=== PATIENT | male | born 1990 | race Caucasian/White ===

== ENCOUNTER 2021-04-08 00:54 | Emergency (ER) | payer OTHER ==
[2021-04-08 01:02] VITALS: TEMP 98.1
[2021-04-08 02:20] LABS: Basophils # (A) 0.1 k/uL (0-0.2); Basophils % (A) 1 %; Eosinophils % (A) 1 %; HCT 43.2 % (39.0-53.0); HGB 15.2 gm/dL (13.0-17.5); Lymphocytes # (A) 1.8 k/uL (1.0-4.8); Lymphocytes % (A) 27 %; MCH 31.5 pg (25.0-35.0); MCHC 35.1 g/dL (31.0-37.0); MCV 89.7 fL (80.0-100.0); Mean Platelet Volume 7.1; Monocytes # (A) 0.5 k/uL (0-1.0); Monocytes % (A) 8 %; Neutrophils % (A) 62 %; Platelet Count 202 k/uL (150-450); RBC 4.82 m/uL (4.30-5.90); RDW 11.4 % (11.5-15.5); WBC 6.6 k/uL (3.8-10.6)
[2021-04-08 02:21] LABS: Appearance,Urine Clear (Clear); Bilirubin,Urine Negative (Negative); Blood,Urine Negative (Negative); Color,Urine Light Yellow; Glucose,Urine (UA) Negative (Negative); Ketones,Urine Negative (Negative); Leukocyte Esterase,Urine Negative (Negative); Nitrite,Urine Negative (Negative); PH, Urine 6.5 (5.0-8.0); Protein,Urine Negative (Negative); Specific Gravity,Urine 1.011 (1.001-1.035); Urobilinogen,Urine <2.0 mg/dL (<2.0)
[2021-04-08 02:31] LABS: ALT 24 U/L (4-49); AST 27 U/L (17-59); African American GFR (CKD) >90 (>60 ml/min/1.73 sqM); Albumin 3.8 g/dL (3.5-5.0); Alkaline Phosphatase 53 U/L (38-126); Anion Gap 7 mmol/L; Blood Urea Nitrogen 11 mg/dL (9-20); Calcium 8.8 mg/dL (8.4-10.2); Carbon Dioxide 26 mmol/L (22-30); Chloride 101 mmol/L (98-107); Glucose 95 mg/dL (74-99); Non-African American GFR(CKD) >90 (>60 ml/min/1.73 sqM); Sodium 134 mmol/L (137-145); Total Bilirubin 0.3 mg/dL (0.2-1.3); Total Protein 6.6 g/dL (6.3-8.2)
--- NOTE | 2021-04-08 03:00 | ED ---
General Adult HPI - General Chief complaint: Weakness Stated complaint: Body Aches/Burning Time Seen by Provider: 04/08/21 01:37 Source: patient Mode of arrival: ambulatory - Related Data Allergies Allergy/AdvReac Type Severity Reaction Status Date / Time ibuprofen AdvReac Rash/Hives Verified 04/08/21 01:02 [From DayQuil Sinus Pressure/Pain] Influenza Virus Vaccines AdvReac Unknown Verified 04/08/21 01:02 Childhood Iodinated Contrast Media AdvReac Rash/Hives Verified 04/08/21 01:02 pseudoephedrine AdvReac Rash/Hives Verified 04/08/21 01:02 [From DayQuil Sinus Pressure/Pain] Review of Systems ROS Statement: Those systems with pertinent positive or pertinent negative responses have been documented in the HPI. ROS Other: All systems not noted in ROS Statement are negative. Past Medical History Past Medical History: No Reported History History of Any Multi-Drug Resistant Organisms: None Reported Past Surgical History: No Surgical Hx Reported Past Psychological History: No Psychological Hx Reported Smoking Status: Never smoker Past Alcohol Use History: None Reported Past Drug Use History: None Reported Course Vital Signs 04/08/21 04/08/21 04/08/21 00:59 01:02 02:21 Temperature 98.1 F 98.1 F Pulse Rate 97 73 Respiratory 18 17 19 Rate Blood Pressure 113/78 114/92 O2 Sat by Pulse 98 95 Oximetry Medical Decision Making - Lab Data Result diagrams: 04/08/21 02:01 04/08/21 02:01 Lab Results 04/08/21 04/08/21 04/08/21 Range/Units 02:01 02:01 02:01 WBC 6.6 (3.8-10.6) k/uL RBC 4.82 (4.30-5.90) m/uL Hgb 15.2 (13.0-17.5) gm/dL Hct 43.2 (39.0-53.0) % MCV 89.7 (80.0-100.0) fL MCH 31.5 (25.0-35.0) pg MCHC 35.1 (31.0-37.0) g/dL RDW 11.4 L (11.5-15.5) % Plt Count 202 (150-450) k/uL MPV 7.1 Neutrophils % 62 % Lymphocytes % 27 % Monocytes % 8 % Eosinophils % 1 % Basophils % 1 % Neutrophils # 4.0 (1.3-7.7) k/uL Lymphocytes # 1.8 (1.0-4.8) k/uL Monocytes # 0.5 (0-1.0) k/uL Eosinophils # 0.0 (0-0.7) k/uL Basophils # 0.1 (0-0.2) k/uL Sodium 134 L (137-145) mmol/L Potassium 4.0 (3.5-5.1) mmol/L Chloride 101 (98-107) mmol/L Carbon Dioxide 26 (22-30) mmol/L Anion Gap 7 mmol/L BUN 11 (9-20) mg/dL Creatinine 0.80 (0.66-1.25) mg/dL Est GFR (CKD-EPI)AfAm >90 (>60 ml/min/1.73 sqM) Est GFR (CKD-EPI)NonAf >90 (>60 ml/min/1.73 sqM) Glucose 95 (74-99) mg/dL Calcium 8.8 (8.4-10.2) mg/dL Total Bilirubin 0.3 (0.2-1.3) mg/dL AST 27 (17-59) U/L ALT 24 (4-49) U/L Alkaline Phosphatase 53 (38-126) U/L Total Protein 6.6 (6.3-8.2) g/dL Albumin 3.8 (3.5-5.0) g/dL Urine Color Urine Appearance (Clear) Urine pH (5.0-8.0) Ur Specific [place] (1.001-1.035) Urine Protein (Negative) Urine Glucose (UA) (Negative) Urine Ketones (Negative) Urine Blood (Negative) Urine Nitrite (Negative) Urine Bilirubin (Negative) Urine Urobilinogen (<2.0) mg/dL Ur Leukocyte Esterase (Negative) Coronavirus (PCR) Detected A (Not Detectd) 04/08/21 Range/Units 02:01 WBC (3.8-10.6) k/uL RBC (4.30-5.90) m/uL Hgb (13.0-17.5) gm/dL Hct (39.0-53.0) % MCV (80.0-100.0) fL MCH (25.0-35.0) pg MCHC (31.0-37.0) g/dL RDW (11.5-15.5) % Plt Count (150-450) k/uL MPV Neutrophils % % Lymphocytes % % Monocytes % % Eosinophils % % Basophils % % Neutrophils # (1.3-7.7) k/uL Lymphocytes # (1.0-4.8) k/uL Monocytes # (0-1.0) k/uL Eosinophils # (0-0.7) k/uL Basophils # (0-0.2) k/uL Sodium (137-145) mmol/L Potassium (3.5-5.1) mmol/L Chloride (98-107) mmol/L Carbon Dioxide (22-30) mmol/L Anion Gap mmol/L BUN (9-20) mg/dL Creatinine (0.66-1.25) mg/dL Est GFR (CKD-EPI)AfAm (>60 ml/min/1.73 sqM) Est GFR (CKD-EPI)NonAf (>60 ml/min/1.73 sqM) Glucose (74-99) mg/dL Calcium (8.4-10.2) mg/dL Total Bilirubin (0.2-1.3) mg/dL AST (17-59) U/L ALT (4-49) U/L Alkaline Phosphatase (38-126) U/L Total Protein (6.3-8.2) g/dL Albumin (3.5-5.0) g/dL Urine Color Light Yellow Urine Appearance Clear (Clear) Urine pH 6.5 (5.0-8.0) Ur Specific [place] 1.011 (1.001-1.035) Urine Protein Negative (Negative) Urine Glucose (UA) Negative (Negative) Urine Ketones Negative (Negative) Urine Blood Negative (Negative) Urine Nitrite Negative (Negative) Urine Bilirubin Negative (Negative) Urine Urobilinogen <2.0 (<2.0) mg/dL Ur Leukocyte Esterase Negative (Negative) Coronavirus (PCR) (Not Detectd) Disposition Clinical Impression: COVID-19 Disposition: HOME SELF-CARE Condition: Good Instructions (If sedation given, give patient instructions): Coronavirus Disease 2019 (COVID-19) Is patient prescribed a controlled substance at d/c from ED?: No Referrals: Prosper Rodriguez MD [Primary Care Provider] - 1-2 days
[2021-04-08 03:42] VITALS: BP 119/71; PULSE 74; RESP 16
== END 2021-04-08 03:35 | disposition home or self-care (01) ==
LOC: EC 00:54
DX: U07.1 COVID-19 (principal)
CPT/HCPCS: 36415; 80053; 81003; 85025; 87635; 93005; 99285

== ENCOUNTER 2021-09-29 17:42 | Emergency (ER) | payer OTHER ==
[2021-09-29 17:53] VITALS: TEMP 99.2
[2021-09-29] MEDS ORDERED: KETOROLAC 15 MG/ML 1 ML VIAL IM STA (18:28)
[2021-09-29] MEDS ORDERED: methocarbamoL 750 MG TAB PO STA (18:28)
[2021-09-29] MEDS ORDERED: HYDROcodone/APAP 5-325MG 1 EACH TAB PO STA (18:28)
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
[2021-09-29 20:00] VITALS: BP 128/83; PULSE 72; RESP 16
== END 2021-09-29 20:09 | disposition home or self-care (01) ==
LOC: EC 17:42
DX: T14.8XXA Other injury of unspecified body region, initial encounter (principal); J45.909 Unspecified asthma, uncomplicated; Z88.6 Allergy status to analgesic agent; Z88.7 Allergy status to serum and vaccine; Z91.041 Radiographic dye allergy status; V99.XXXA Unspecified transport accident, initial encounter
CPT/HCPCS: 71111; 72170; 73060; 99283; 96372; J1885

== ENCOUNTER 2022-02-15 20:28 | Emergency (ER) | payer OTHER ==
[2022-02-15 21:25] VITALS: TEMP 97.8
[2022-02-16] MEDS ORDERED: SODIUM CHLORIDE 0.9% 1,000 ML IV STA (00:06)
[2022-02-16] MEDS ORDERED: KETOROLAC 15 MG/ML 1 ML VIAL IVP STA (00:21)
[2022-02-16 01:21] LABS: Basophils # (A) 0.1 k/uL (0-0.2); Basophils % (A) 1 %; Eosinophils # (A) 0.1 k/uL (0-0.7); Eosinophils % (A) 1 %; HCT 46.8 % (39.0-53.0); HGB 15.3 gm/dL (13.0-17.5); Lymphocytes # (A) 1.5 k/uL (1.0-4.8); Lymphocytes % (A) 9 %; MCH 29.7 pg (25.0-35.0); MCHC 32.6 g/dL (31.0-37.0); MCV 90.9 fL (80.0-100.0); Mean Platelet Volume 7.3; Monocytes # (A) 0.6 k/uL (0-1.0); Monocytes % (A) 4 %; Neutrophils # (A) 13.2 k/uL (1.3-7.7); Neutrophils % (A) 84 %; Platelet Count 311 k/uL (150-450); RBC 5.15 m/uL (4.30-5.90); RDW 12.2 % (11.5-15.5); WBC 15.7 k/uL (3.8-10.6)
[2022-02-16 01:40] LABS: ALT 22 U/L (4-49); AST 30 U/L (17-59); African American GFR (CKD) >90 (>60 ml/min/1.73 sqM); Albumin 5.3 g/dL (3.5-5.0); Alkaline Phosphatase 68 U/L (38-126); Anion Gap 12 mmol/L; Blood Urea Nitrogen 13 mg/dL (9-20); Calcium 9.6 mg/dL (8.4-10.2); Carbon Dioxide 25 mmol/L (22-30); Chloride 104 mmol/L (98-107); Glucose 112 mg/dL (74-99); Lipase 237 U/L (23-300); Non-African American GFR(CKD) >90 (>60 ml/min/1.73 sqM); Potassium 3.9 mmol/L (3.5-5.1); Sodium 141 mmol/L (137-145); Total Bilirubin 0.6 mg/dL (0.2-1.3); Total Protein 8.9 g/dL (6.3-8.2)
[2022-02-16 01:44] LABS: Appearance,Urine Clear (Clear); Bilirubin,Urine Negative (Negative); Blood,Urine Small (Negative); Color,Urine Colorless; Glucose,Urine (UA) Negative (Negative); Ketones,Urine Negative (Negative); Leukocyte Esterase,Urine Negative (Negative); Nitrite,Urine Negative (Negative); PH, Urine 6.5 (5.0-8.0); Protein,Urine Negative (Negative); RBC,Urine <1 /hpf (0-5); Specific Gravity,Urine 1.003 (1.001-1.035); Urobilinogen,Urine <2.0 mg/dL (<2.0); WBC,Urine <1 /hpf (0-5)
[2022-02-16 01:45] VITALS: BP 108/83; PULSE 62; RESP 18
--- NOTE | 2022-02-16 01:58 | XR ---
EXAM: XR Abdomen, 1 View CLINICAL HISTORY: abdominal pain TECHNIQUE: Frontal upright view of the abdomen/pelvis. COMPARISON: No relevant prior studies available. FINDINGS: Intraperitoneal space: No pneumoperitoneum. Gastrointestinal tract: Unremarkable. No dilation. Mild stool burden. Bones/joints: Unremarkable. IMPRESSION: Nonspecific, nonobstructive bowel gas pattern. No pneumoperitoneum.
--- NOTE | 2022-02-16 02:12 | CT ---
EXAM: CT Abdomen and Pelvis Without Intravenous Contrast CLINICAL HISTORY: ITS.REASON CT Reason: Right flank pain TECHNIQUE: Axial computed tomography images of the abdomen and pelvis without intravenous contrast. CTDI is 9 mGy and DLP is 507.4 mGy-cm. This CT exam was performed using one or more of the following dose reduction techniques: automated exposure control, adjustment of the mA and/or kV according to patient size, and/or use of iterative reconstruction technique. COMPARISON: No relevant prior studies available. FINDINGS: Lung bases: Unremarkable. No mass. No consolidation. ABDOMEN: Liver: Unremarkable. Gallbladder and bile ducts: Unremarkable. No calcified stones. No ductal dilation. Pancreas: Unremarkable. No ductal dilation. Spleen: Unremarkable. No splenomegaly. Adrenals: Unremarkable. No mass. Kidneys and ureters: 2 mm distal right ureteral stone noted at the UVJ with minimal proximal right hydroureteronephrosis. Additional nonobstructive subcentimeter nephrolithiasis noted in the midpole of the right kidney. The left kidney is unremarkable. Stomach and bowel: No evidence for bowel obstruction. Evaluation of the bowel mucosa is slightly limited without contrast; however, no definite focal asymmetry suggested. PELVIS: Appendix: A normal caliber appendix is noted in the right lower quadrant. Bladder: Bladder is mildly distended. The right UVJ stone is again noted. No stones noted in the bladder. Reproductive: Unremarkable as visualized. ABDOMEN and PELVIS: Intraperitoneal space: Unremarkable. No free air. No significant fluid collection. Bones/joints: No acute fracture. No dislocation. Soft tissues: Unremarkable. Vasculature: Unremarkable. No abdominal aortic aneurysm. Lymph nodes: Unremarkable. No enlarged lymph nodes. IMPRESSION: 1. 2 mm distal right ureteral stone noted at the UVJ with minimal proximal right hydroureteronephrosis. 2. Additional nonobstructive subcentimeter nephrolithiasis noted in the midpole of the right kidney. The left kidney is unremarkable.
[2022-02-16] MEDS ORDERED: TAMSULOSIN 0.4 MG CAP.ER.24H PO STA (03:01)
--- NOTE | 2022-02-16 03:02 | ED ---
Abdominal Pain HPI - General Chief Complaint: Abdominal Pain Stated Complaint: Rt Sided Abd.Pain Time Seen by Provider: 02/16/22 00:06 Source: patient, RN notes reviewed Mode of arrival: ambulatory Limitations: no limitations - History of Present Illness Initial Comments: Patient presents with right flank pain that started quite abruptly about 5:30 or 6 PM. Patient had some nausea. No fever. No hematuria but had some urinary urgency. Did radiate around the right flank. Patient has no history of kidney stones. No alleviating or exacerbating factors. Patient states pain is somewhat improved but is still present however No headache, no fever or chills, no changes in vision or hearing, no sore throat or difficulty with speech, no neck pain, no chest pain or shortness of breath, no abdominal pain, no nausea or vomiting, no changes in urination or bowel movements, no numbness or tingling, no extremity pain, no skin rashes or lesions. MD Complaint: flank pain - Related Data Home Medications Medication Instructions Recorded Confirmed Albuterol Inhaler [Ventolin Hfa 2 puff INHALATION RT-QID PRN 09/06/21 12/05/21 Inhaler] EPINEPHrine (Auto Inject) [Epipen] 0.3 mg IM ONCE PRN 09/06/21 12/05/21 Venlafaxine HCl ER [Effexor Xr] 150 mg PO DAILY 09/06/21 12/05/21 hydrOXYzine HCL [Atarax] 20 mg PO TID PRN 09/06/21 12/05/21 Omeprazole 20 mg PO DAILY 09/29/21 12/05/21 Previous Rx's Medication Instructions Recorded Ondansetron Odt [Zofran Odt] 4 mg PO Q8HR PRN #10 tab 12/05/21 HYDROcodone/APAP 5-325MG [[place] 1 tab PO Q6HR PRN 3 Days #12 tab 02/16/22 5-325] Tamsulosin [Flomax] 0.4 mg PO DAILY #5 cap 02/16/22 Allergies Allergy/AdvReac Type Severity Reaction Status Date / Time ibuprofen Allergy Rash/Hives Verified 02/15/22 21:25 [From DayQuil Sinus Pressure/Pain] Influenza Virus Vaccines Allergy Unknown Verified 02/15/22 21:25 Childhood Iodinated Contrast Media Allergy Rash/Hives Verified 06/16/22 21:25 pseudoephedrine Allergy Rash/Hives Verified 02/15/22 21:25 [From DayQuil Sinus Pressure/Pain] Review of Systems ROS Statement: Those systems with pertinent positive or pertinent negative responses have been documented in the HPI. ROS Other: All systems not noted in ROS Statement are negative. Past Medical History Past Medical History: Asthma Additional Past Medical History / Comment(s): colitis, "tiny hole in heart" History of Any Multi-Drug Resistant Organisms: None Reported Past Surgical History: No Surgical Hx Reported Past Psychological History: No Psychological Hx Reported Smoking Status: Never smoker Past Alcohol Use History: None Reported Past Drug Use History: None Reported General Exam Limitations: no limitations General appearance: alert, in no apparent distress Head exam: Present: atraumatic, normocephalic, normal inspection Eye exam: Present: normal appearance, PERRL, EOMI. Absent: scleral icterus, conjunctival injection, periorbital swelling ENT exam: Present: normal exam, mucous membranes moist Neck exam: Present: normal inspection, full ROM. Absent: tenderness, meningismus, lymphadenopathy Respiratory exam: Present: normal lung sounds bilaterally. Absent: respiratory distress, wheezes, rales, rhonchi, stridor Cardiovascular Exam: Present: regular rate, normal rhythm, normal heart sounds. Absent: systolic murmur, diastolic murmur, rubs, gallop, clicks GI/Abdominal exam: Present: soft, normal bowel sounds. Absent: distended, tenderness, guarding, rebound, rigid Extremities exam: Present: normal inspection, full ROM, normal capillary refill. Absent: tenderness, pedal edema, joint swelling, calf tenderness Back exam: Present: normal inspection, CVA tenderness (R). Absent: CVA tenderness (L) Neurological exam: Present: alert, oriented X3, CN II-XII intact Psychiatric exam: Present: normal affect, normal mood Skin exam: Present: warm, dry, intact, normal color. Absent: rash Course Vital Signs 02/15/22 02/16/22 02/16/22 21:22 01:10 01:44 Temperature 97.8 F Pulse Rate 64 55 L 62 Respiratory 20 16 18 Rate Blood Pressure 125/69 106/75 108/83 O2 Sat by Pulse 99 100 99 Oximetry Medical Decision Making - Medical Decision Making 2 mm distal right ureteral stone with mild hydronephrosis Patient was told to return to the ER for any signs or symptoms worsen. Told to return immediately if any other problems arise. All questions answered. Treatment plan discussed. Patient in agreement Every effort has been made to ensure accuracy of this dictation. However, due to the limitations of electronic medical records and dictation devices, errors in charting still occur. The case was discussed in detail with ED attending physician. Presentation, findings, treatment plan discussed in detail. Community Health Educator, Dr. Sorto - Lab Data Result diagrams: 02/16/22 01:09 02/16/22 01:09 Lab Results 02/16/22 02/16/22 02/16/22 Range/Units 01:09 01:09 01:09 WBC 15.7 H (3.8-10.6) k/uL RBC 5.15 (4.30-5.90) m/uL Hgb 15.3 (13.0-17.5) gm/dL Hct 46.8 (39.0-53.0) % MCV 90.9 (80.0-100.0) fL MCH 29.7 (25.0-35.0) pg MCHC 32.6 (31.0-37.0) g/dL RDW 12.2 (11.5-15.5) % Plt Count 311 (150-450) k/uL MPV 7.3 Neutrophils % 84 % Lymphocytes % 9 % Monocytes % 4 % Eosinophils % 1 % Basophils % 1 % Neutrophils # 13.2 H (1.3-7.7) k/uL Lymphocytes # 1.5 (1.0-4.8) k/uL Monocytes # 0.6 (0-1.0) k/uL Eosinophils # 0.1 (0-0.7) k/uL Basophils # 0.1 (0-0.2) k/uL Sodium 141 (137-145) mmol/L Potassium 3.9 (3.5-5.1) mmol/L Chloride 104 (98-107) mmol/L Carbon Dioxide 25 (22-30) mmol/L Anion Gap 12 mmol/L BUN 13 (9-20) mg/dL Creatinine 0.90 (0.66-1.25) mg/dL Est GFR (CKD-EPI)AfAm >90 (>60 ml/min/1.73 sqM) Est GFR (CKD-EPI)NonAf >90 (>60 ml/min/1.73 sqM) Glucose 112 H (74-99) mg/dL Calcium 9.6 (8.4-10.2) mg/dL Total Bilirubin 0.6 (0.2-1.3) mg/dL AST 30 (17-59) U/L ALT 22 (4-49) U/L Alkaline Phosphatase 68 (38-126) U/L Total Protein 8.9 H (6.3-8.2) g/dL Albumin 5.3 H (3.5-5.0) g/dL Lipase 237 (23-300) U/L Urine Color Colorless Urine Appearance Clear (Clear) Urine pH 6.5 (5.0-8.0) Ur Specific [place] 1.003 (1.001-1.035) Urine Protein Negative (Negative) Urine Glucose (UA) Negative (Negative) Urine Ketones Negative (Negative) Urine Blood Small H (Negative) Urine Nitrite Negative (Negative) Urine Bilirubin Negative (Negative) Urine Urobilinogen <2.0 (<2.0) mg/dL Ur Leukocyte Esterase Negative (Negative) Urine RBC <1 (0-5) /hpf Urine WBC <1 (0-5) /hpf - Radiology Data Radiology results: report reviewed, image reviewed Disposition Clinical Impression: Ureterolithiasis, Hydronephrosis, right Disposition: HOME SELF-CARE Condition: Good Instructions (If sedation given, give patient instructions): Kidney Stones (ED) Additional Instructions: Follow-up with your regular physician as directed. Return to the ER immediately if any symptoms worsen, new symptoms arise, or any other problems develop. Strain urine as directed. Is patient prescribed a controlled substance at d/c from ED?: No Referrals: Prosper Rodriguez MD [Primary Care Provider] - 02/20/22 Time of Disposition: 02:58
== END 2022-02-16 03:28 | disposition home or self-care (01) ==
LOC: EC 20:28
DX: N13.2 Hydronephrosis with renal and ureteral calculous obstruction (principal); J45.909 Unspecified asthma, uncomplicated; Z88.6 Allergy status to analgesic agent; Z88.7 Allergy status to serum and vaccine; Z91.041 Radiographic dye allergy status; Z88.8 Allergy status to other drugs, medicaments and biological substances
CPT/HCPCS: 36415; 74018; 74176; 80053; 81001; 83690; 85025; 96360; 96361; 99284

== ENCOUNTER 2022-11-18 10:10 | Emergency (ER) | payer OTHER ==
[2022-11-18 10:16] VITALS: RESP 18
[2022-11-18] MEDS ORDERED: diphenhydrAMINE 50 MG/ML 1 ML VIAL IVP STA (10:30)
[2022-11-18] MEDS ORDERED: SODIUM CHLORIDE 0.9% 1,000 ML IV STA (10:30)
[2022-11-18] MEDS ORDERED: FAMOTIDINE 20 MG/2 ML VIAL IV STA (10:30)
[2022-11-18] MEDS ORDERED: methylPREDNISolone SOD SUCCI 125 MG/2 ML VIAL IV STA (10:30)
--- NOTE | 2022-11-18 10:34 | ED ---
Allergic Reaction HPI - General Chief complaint: Allergic Reaction Stated complaint: Poss Allergic Reaction Time Seen by Provider: 11/18/22 10:23 Source: patient, RN notes reviewed Mode of arrival: ambulatory Limitations: no limitations - History of Present Illness Initial Comments: This is a 32-year-old male who presents to the emergency department for concerns of an allergic reaction. States that when he woke up this morning, he noticed that his uvula was swollen. He also has an associated sore throat. He feels like he is having difficulty swallowing as a result of this, however he is able to swallow without anything coming back up. He was at [employer] last night and wonders if he may have been exposed to shellfish, which he is allergic to. Denies any difficulty breathing. Denies any fevers, chills, cough, dyspnea, chest pain, palpitations, abdominal pain, nausea, vomiting, diarrhea, back pain, or headaches. Symptoms: difficulty swallowing Treatment Prior to Arrival: none - Related Data Home Medications Medication Instructions Recorded Confirmed Venlafaxine HCl ER [Effexor Xr] 150 mg PO DAILY 09/06/21 11/18/22 hydrOXYzine HCL [Atarax] 10 mg PO DAILY 09/06/21 11/18/22 Previous Rx's Medication Instructions Recorded Amoxic-Pot Clav 875-125Mg 1 tab PO Q12HR 5 Days #10 tab 11/18/22 [Augmentin 875-125] predniSONE 50 mg PO DAILY 5 Days #5 tablet 11/18/22 Allergies Allergy/AdvReac Type Severity Reaction Status Date / Time ibuprofen Allergy Rash/Hives Verified 11/18/22 11:11 [From DayQuil Sinus Pressure/Pain] Influenza Virus Vaccines Allergy Unknown Verified 11/18/22 11:11 Childhood Iodinated Contrast Media Allergy Rash/Hives Verified 11/18/22 11:11 pseudoephedrine Allergy Rash/Hives Verified 11/18/22 11:11 [From DayQuil Sinus Pressure/Pain] Review of Systems ROS Statement: Those systems with pertinent positive or pertinent negative responses have been documented in the HPI. ROS Other: All systems not noted in ROS Statement are negative. Past Medical History Past Medical History: Asthma Additional Past Medical History / Comment(s): colitis, "tiny hole in heart" History of Any Multi-Drug Resistant Organisms: None Reported Past Surgical History: No Surgical Hx Reported Past Psychological History: No Psychological Hx Reported Smoking Status: Never smoker Past Alcohol Use History: None Reported Past Drug Use History: None Reported General Exam Limitations: no limitations General appearance: alert, in no apparent distress Head exam: Present: atraumatic, normocephalic, normal inspection ENT exam: Present: other (Erythematous and edematous uvula. No exudates.) Neck exam: Present: normal inspection. Absent: tenderness, meningismus, lymphadenopathy Respiratory exam: Present: normal lung sounds bilaterally. Absent: respiratory distress, wheezes, rales, rhonchi, stridor Cardiovascular Exam: Present: regular rate, normal rhythm, normal heart sounds. Absent: systolic murmur, diastolic murmur, rubs, gallop, clicks Neurological exam: Present: alert, oriented X3, CN II-XII intact Psychiatric exam: Present: normal affect, normal mood Skin exam: Present: warm, dry, intact, normal color. Absent: rash Course Vital Signs 11/18/22 11/18/22 11/18/22 10:13 10:21 13:25 Temperature 98.6 F 98.2 F Pulse Rate 74 74 84 Respiratory 18 18 Rate Blood Pressure 136/82 110/83 O2 Sat by Pulse 99 97 98 Oximetry Medical Decision Making - Medical Decision Making This is a 32-year-old male who presents to the emergency department for an enlarged uvula and difficulty swallowing. Was pt. sent in by a medical professional or institution? @ -No Did you speak to anyone other than the patient for history? @ -No Did you review nursing and triage notes? @ -Yes, and I agree, it is accurate with regards to the patient's symptoms. Were old charts reviewed? @ -No Differential Diagnosis? @ -Differential Sore Throat: -Strep pharyngitis, herpes zoster, COVID, influenza, epiglottitis, uvulitis, GERD, allergic rhinitis, mononucleosis, this is not meant to be an all-inclusive list. X-rays interpreted by me (1pt min.)? @ -X-ray of the soft tissue neck obtained. My interpretation identifies tons ilar hypertrophy and no evidence of airway swelling. What testing was considered but not performed? (CT, X-rays, U/S, labs)? Why? @ -None What meds were considered but not given? Why? @ -None Did you discuss the management of the patient with other professionals? @ -No Did you reconcile home meds? @ -No Was smoking cessation discussed for >3mins.? @ -No Was critical care preformed (if so, how long)? @ -No Were there social determinants of health that impacted care today? How? (Homelessness, low income, unemployed, alcoholism, drug addiction, transp ortation, low edu. Level, literacy, decrease access to med. care, senior care, rehab)? @ -No Was there de-escalation of care discussed even if they declined? (Discuss DNR or withdrawal of care, Hospice)? @ -No What co-morbidities impacted this encounter? (DM, HTN, Smoking, COPD, CAD, Cancer, CVA, Hep., AIDS, mental health diagnosis, sleep apnea, morbid obesity)? @ -None Was patient admitted / discharged? @ -Discharged. He was initially given an allergic reaction cocktail consisting of Solu-Medrol, Pepcid, and Benadryl. He essentially had no improvement in symptoms. Strep test was negative. We subsequently obtained lab work including a CBC, CMP, lactic acid, and inflammatory markers, all of which were negative as well. He did seem to start getting improvement after the medications had more time to work. This is likely infectious versus inflammatory in nature. Prescription for 5 day course of prednisone and Augmentin provided with dosing instructions reviewed. He is otherwise advised to follow up with his primary care provider. Undiagnosed new problem with uncertain prognosis? @ -None Drug Therapy requiring intensive monitoring for toxicity (Heparin, Nitro, Insulin, Cardizem)? @ -None Were any procedures done? @ -None Diagnosis/symptom? @ -Pharyngitis, uvulitis Acute, or Chronic, or Acute on Chronic? @ -Acute Uncomplicated (without systemic symptoms) or Complicated (systemic symptoms)? @ -Uncomplicated Side effects of treatment? @ -None Exacerbation, Progression, or Severe Exacerbation] @ -Not applicable Poses a threat to life or bodily function? @ -No Return precautions reviewed in depth, the patient is instructed to return to the emergency department with any new, worsening, or concerning symptoms. Patient verbalized understanding. This case was discussed in detail with the attending ED physician, Dr. Cobos. Presentation, findings, and treatment plan discussed in detail as well. - Lab Data Result diagrams: 11/18/22 11:54 03/19/23 11:54 Lab Results 11/18/22 11/18/22 11/18/22 Range/Units 10:45 11:54 11:54 WBC 7.1 (3.8-10.6) k/uL RBC 4.62 (4.30-5.90) m/uL Hgb 14.1 (13.0-17.5) gm/dL Hct 41.0 (39.0-53.0) % MCV 88.8 (80.0-100.0) fL MCH 30.6 (25.0-35.0) pg MCHC 34.4 (31.0-37.0) g/dL RDW 12.7 (11.5-15.5) % Plt Count 238 (150-450) k/uL MPV 7.7 Neutrophils % 73 % Lymphocytes % 17 % Monocytes % 3 % Eosinophils % 3 % Basophils % 1 % Neutrophils # 5.2 (1.3-7.7) k/uL Lymphocytes # 1.2 (1.0-4.8) k/uL Monocytes # 0.2 (0-1.0) k/uL Eosinophils # 0.2 (0-0.7) k/uL Basophils # 0.1 (0-0.2) k/uL Sodium 142 (137-145) mmol/L Potassium 5.0 (3.5-5.1) mmol/L Chloride 110 H (98-107) mmol/L Carbon Dioxide 27 (22-30) mmol/L Anion Gap 5 mmol/L BUN 16 (9-20) mg/dL Creatinine 0.87 (0.66-1.25) mg/dL Est GFR (CKD-EPI)AfAm >90 (>60 ml/min/1.73 sqM) Est GFR (CKD-EPI)NonAf >90 (>60 ml/min/1.73 sqM) Glucose 99 (74-99) mg/dL Plasma Lactic Acid Murtaza (0.7-2.0) mmol/L Calcium 8.5 (8.4-10.2) mg/dL Total Bilirubin 0.4 (0.2-1.3) mg/dL AST 24 (17-59) U/L ALT 25 (4-49) U/L Alkaline Phosphatase 58 (38-126) U/L C-Reactive Protein <0.5 (<1.0) mg/dL Total Protein 6.6 (6.3-8.2) g/dL Albumin 3.9 (3.5-5.0) g/dL Group A Strep (PCR) NOT DETECTED (Not Detectd) 11/18/22 Range/Units 11:54 WBC (3.8-10.6) k/uL RBC (4.30-5.90) m/uL Hgb (13.0-17.5) gm/dL Hct (39.0-53.0) % MCV (80.0-100.0) fL MCH (25.0-35.0) pg MCHC (31.0-37.0) g/dL RDW (11.5-15.5) % Plt Count (150-450) k/uL MPV Neutrophils % % Lymphocytes % % Monocytes % % Eosinophils % % Basophils % % Neutrophils # (1.3-7.7) k/uL Lymphocytes # (1.0-4.8) k/uL Monocytes # (0-1.0) k/uL Eosinophils # (0-0.7) k/uL Basophils # (0-0.2) k/uL Sodium (137-145) mmol/L Potassium (3.5-5.1) mmol/L Chloride (98-107) mmol/L Carbon Dioxide (22-30) mmol/L Anion Gap mmol/L BUN (9-20) mg/dL Creatinine (0.66-1.25) mg/dL Est GFR (CKD-EPI)AfAm (>60 ml/min/1.73 sqM) Est GFR (CKD-EPI)NonAf (>60 ml/min/1.73 sqM) Glucose (74-99) mg/dL Plasma Lactic Acid Murtaza 1.3 (0.7-2.0) mmol/L Calcium (8.4-10.2) mg/dL Total Bilirubin (0.2-1.3) mg/dL AST (17-59) U/L ALT (4-49) U/L Alkaline Phosphatase (38-126) U/L C-Reactive Protein (<1.0) mg/dL Total Protein (6.3-8.2) g/dL Albumin (3.5-5.0) g/dL Group A Strep (PCR) (Not Detectd) - Radiology Data Radiology results: report reviewed, image reviewed Disposition Clinical Impression: Sore throat, Uvular swelling Disposition: HOME SELF-CARE Instructions (If sedation given, give patient instructions): Pharyngitis (ED), Uvulitis (ED) Additional Instructions: Return to the emergency department with any new, worsening, or concerning symptoms. Take the antibiotic as prescribed for 5 days and the prednisone daily for 5 days. Follow up with your primary care provider in 1-2 days. Prescriptions: Amoxic-Pot Clav 875-125Mg [Augmentin 875-125] 1 tab PO Q12HR 5 Days #10 tab predniSONE 50 mg PO DAILY 5 Days #5 tablet Is patient prescribed a controlled substance at d/c from ED?: No Referrals: Prosper Rodriguez MD [Primary Care Provider] - 1-2 days
[2022-11-18 12:06] LABS: Basophils # (A) 0.1 k/uL (0-0.2); Basophils % (A) 1 %; Eosinophils # (A) 0.2 k/uL (0-0.7); Eosinophils % (A) 3 %; HGB 14.1 gm/dL (13.0-17.5); Lymphocytes # (A) 1.2 k/uL (1.0-4.8); Lymphocytes % (A) 17 %; MCH 30.6 pg (25.0-35.0); MCHC 34.4 g/dL (31.0-37.0); MCV 88.8 fL (80.0-100.0); Mean Platelet Volume 7.7; Monocytes # (A) 0.2 k/uL (0-1.0); Monocytes % (A) 3 %; Neutrophils # (A) 5.2 k/uL (1.3-7.7); Neutrophils % (A) 73 %; Platelet Count 238 k/uL (150-450); RBC 4.62 m/uL (4.30-5.90); RDW 12.7 % (11.5-15.5); WBC 7.1 k/uL (3.8-10.6)
[2022-11-18 12:17] LABS: ALT 25 U/L (4-49); AST 24 U/L (17-59); African American GFR (CKD) >90 (>60 ml/min/1.73 sqM); Albumin 3.9 g/dL (3.5-5.0); Alkaline Phosphatase 58 U/L (38-126); Anion Gap 5 mmol/L; Blood Urea Nitrogen 16 mg/dL (9-20); C Reactive Protein <0.5 mg/dL (<1.0); Calcium 8.5 mg/dL (8.4-10.2); Carbon Dioxide 27 mmol/L (22-30); Chloride 110 mmol/L (98-107); Glucose 99 mg/dL (74-99); Non-African American GFR(CKD) >90 (>60 ml/min/1.73 sqM); Sodium 142 mmol/L (137-145); Total Bilirubin 0.4 mg/dL (0.2-1.3); Total Protein 6.6 g/dL (6.3-8.2)
--- NOTE | 2022-11-18 12:59 | XR ---
EXAMINATION TYPE: XR soft tissue neck DATE OF EXAM: 11/18/2022 COMPARISON: None HISTORY: 32-year-old male with throat swelling, dysphagia, possible allergic reaction TECHNIQUE: Frontal and lateral views FINDINGS: The nasopharyngeal and oropharyngeal airway appear patent. No prevertebral soft tissue swelling. Ther e is either prominent lingual versus palatine tonsillar hypertrophy noted. Epiglottis appears normal. No abnormal narrowing of the subglottic airway at this time. Visualized upper lungs are clear. IMPRESSION: No appreciable airway compromise. No prevertebral soft tissue swelling. Either prominent lingual vers us palatine tonsillar hypertrophy incidentally noted.
[2022-11-18] MEDS ORDERED: PENICILLIN G BENZATHINE 1,200,000 UNIT/2 ML SYRINGE IM STA (13:06)
[2022-11-18] MEDS ORDERED: DEXAMETHASONE SOD PHOSPHATE 10 MG/ML 1 ML VIAL IVP STA (13:11)
[2022-11-18 13:27] VITALS: BP 110/83; PULSE 84; TEMP 98.2
== END 2022-11-18 13:41 | disposition home or self-care (01) ==
LOC: EC 10:10
DX: J02.9 Acute pharyngitis, unspecified (principal); R22.1 Localized swelling, mass and lump, neck; J45.909 Unspecified asthma, uncomplicated; Z88.7 Allergy status to serum and vaccine; Z88.6 Allergy status to analgesic agent; Z91.048 Other nonmedicinal substance allergy status; Z88.8 Allergy status to other drugs, medicaments and biological substances
CPT/HCPCS: 36415; 87651; 80053; 83605; 85025; 86140; 70360; 99283; 96374; 96375 ×3; 96361; 96372; J0561; J1200; J1100; J2930

== ENCOUNTER 2022-12-04 06:48 | Emergency (ER) | payer OTHER ==
[2022-12-04 07:06] VITALS: RESP 16
[2022-12-04] MEDS ORDERED: BENZOCAINE SPRAY 1 CAN MUCOUS MEM ONE (07:26)
[2022-12-04] MEDS ORDERED: DEXAMETHASONE SOD PHOSPHATE 10 MG/ML 1 ML VIAL IM STA (07:26)
--- NOTE | 2022-12-04 07:34 | ED ---
ENT HPI - General Chief complaint: Recheck/Abnormal Lab/Rx Stated complaint: SWOLLEN THROAT Time Seen by Provider: 12/04/22 07:14 Source: patient, RN notes reviewed Mode of arrival: ambulatory Limitations: no limitations - History of Present Illness Initial comments: This is a 32-year-old male who presents to the emergency department for a sore throat. I evaluated the patient on 11/18 when he had been experiencing a sore throat and a swollen uvula. He was concerned that this was an allergic reaction. Strep test was negative. He was prescribed prednisone and Augmentin. States that he got much better shortly after starting the medications, however he has had a residual mild sore throat. Symptoms are not as severe, however when he woke up this morning around 6:30, he again noticed that his uvula was swollen. He denies any fevers or coughing. Also denies any difficulty breathing or painful swallowing. He does not believe that this is an allergic reaction, because all he had to eat last night was potatoes, which he knows that he is not allergic to. He has not taken anything for his symptoms at this time. He is up to date on immunizations. Denies any fevers, chills, cough, dyspnea, chest pain, palpitations, abdominal pain, nausea, vomiting, diarrhea, back pain, or headaches. MD complaint: sore throat Location: throat - Related Data Home Medications Medication Instructions Recorded Confirmed Venlafaxine HCl ER [Effexor Xr] 150 mg PO DAILY 09/06/21 11/18/22 hydrOXYzine HCL [Atarax] 10 mg PO DAILY 09/06/21 11/18/22 Previous Rx's Medication Instructions Recorded Amoxic-Pot Clav 875-125Mg 1 tab PO Q12HR 5 Days #10 tab 12/04/22 [Augmentin 875-125] dexAMETHasone [Decadron] 6 mg PO DAILY 4 Days #4 tablet 12/04/22 Allergies Allergy/AdvReac Type Severity Reaction Status Date / Time ibuprofen Allergy Rash/Hives Verified 12/04/22 07:04 [From DayQuil Sinus Pressure/Pain] Influenza Virus Vaccines Allergy Unknown Verified 12/04/22 07:04 Childhood Iodinated Contrast Media Allergy Rash/Hives Verified 12/04/22 07:04 pseudoephedrine Allergy Rash/Hives Verified 12/04/22 07:04 [From DayQuil Sinus Pressure/Pain] Review of Systems ROS Statement: Those systems with pertinent positive or pertinent negative responses have been documented in the HPI. ROS Other: All systems not noted in ROS Statement are negative. Past Medical History Past Medical History: Asthma Additional Past Medical History / Comment(s): colitis, "tiny hole in heart" History of Any Multi-Drug Resistant Organisms: None Reported Past Surgical History: No Surgical Hx Reported Past Psychological History: No Psychological Hx Reported Smoking Status: Never smoker Past Alcohol Use History: None Reported Past Drug Use History: None Reported General Exam Limitations: no limitations General appearance: alert, in no apparent distress Head exam: Present: atraumatic, normocephalic, normal inspection ENT exam: Present: other (Posterior pharyngeal erythema, no exudates. 2+ tonsilar hypertrophy. The uvula may be mildly enlarged. ) Respiratory exam: Present: normal lung sounds bilaterally. Absent: respiratory distress, wheezes, rales, rhonchi, stridor Cardiovascular Exam: Present: regular rate, normal rhythm, normal heart sounds. Absent: systolic murmur, diastolic murmur, rubs, gallop, clicks Neurological exam: Present: alert, oriented X3, CN II-XII intact Psychiatric exam: Present: normal affect, normal mood Skin exam: Present: warm, dry, intact, normal color. Absent: rash Course Vital Signs 12/04/22 12/04/22 07:04 11:10 Temperature 98 F 98.4 F Pulse Rate 69 82 Respiratory 16 16 Rate Blood Pressure 135/89 126/85 O2 Sat by Pulse 100 97 Oximetry Medical Decision Making - Medical Decision Making This is a 32-year-old male who presents to the emergency department for a sore throat. Was pt. sent in by a medical professional or institution? @ -No Did you speak to anyone other than the patient for history? @ -No Did you review nursing and triage notes? @ -Yes, and I agree, it is accurate with regards to the patient's symptoms. Were old charts reviewed? @ -No Differential Diagnosis? @ -Differential Sore Throat: Strep pharyngitis, herpes zoster, COVID, influenza, GERD, allergic rhinitis, mononucleosis, this is not meant to be an all-inclusive list. X-rays interpreted by me (1pt min.)? @ -X-ray of the soft tissue neck obtained. My interpretation identifies no swelling of the epiglottis or airway compromise. There does appear to be prominence of the lingual versus palatine tonsils. What testing was considered but not performed? (CT, X-rays, U/S, labs)? Why? @ -None What meds were considered but not given? Why? @ -None Did you discuss the management of the patient with other professionals? @ -No Did you reconcile home meds? @ -No Was smoking cessation discussed for >3mins.? @ -No Was critical care preformed (if so, how long)? @ -No Were there social determinants of health that impacted care today? How? (Homelessness, low income, unemployed, alcoholism, drug addiction, transportation, low edu. Level, literacy, decrease access to med. care, usp, rehab)? @ -No Was there de-escalation of care discussed even if they declined? (Discuss DNR or withdrawal of care, Hospice)? @ -No What co-morbidities impacted this encounter? (DM, HTN, Smoking, COPD, CAD, Cancer, CVA, Hep., AIDS, mental health diagnosis, sleep apnea, morbid obesity)? @ -None Was patient admitted / discharged? @ -Discharged. Patient given a dose of Decadron and Hurricaine spray in the e mergency department, which he states was helpful. Rapid strep test, Covid, influenza, and RSV testing negative. X-ray of the soft tissue neck obtained revealing hypertrophy of the lingual versus palatine tonsils. Per radiology, this is incidentally noted and unchanged from the x-ray of the soft tissue neck from last month. There is no evidence of an epiglottitis or airway compromise. Findings reviewed with the patient. Discussed that this may be related to a viral or bacterial process. Information for ENT follow-up provided. Instructed to contact them for a follow-up appointment. Prescription for Decadron and Augmentin provided again with dosing instructions reviewed. Undiagnosed new problem with uncertain prognosis? @ -None Drug Therapy requiring intensive monitoring for toxicity (Heparin, Nitro, Insulin, Cardizem)? @ -None Were any procedures done? @ -None Diagnosis/symptom? @ -Pharyngitis, uvulitis Acute, or Chronic, or Acute on Chronic? @ -Acute Uncomplicated (without systemic symptoms) or Complicated (systemic symptoms)? @ -Uncomplicated Side effects of treatment? @ -None Exacerbation, Progression, or Severe Exacerbation] @ -Not applicable Poses a threat to life or bodily function? @ -No Return precautions reviewed in depth, the patient is instructed to return to the emergency department with any new, worsening, or concerning symptoms. Patient verbalized understanding. This case was discussed in detail with the attending ED physician, Dr. Nugent. Presentation, findings, and treatment plan discussed in detail as well. - Lab Data Lab Results 12/04/22 12/04/22 Range/Units 07:35 07:35 Influenza Type A (PCR) Not Detected (Not Detectd) Influenza Type B (PCR) Not Detected (Not Detectd) RSV (PCR) Not Detected (Not Detectd) SARS-CoV-2 (PCR) Not Detected (Not Detectd) Group A Strep (PCR) NOT DETECTED (Not Detectd) - Radiology Data Radiology results: report reviewed, image reviewed Disposition Clinical Impression: Uvulitis, Pharyngitis Disposition: HOME SELF-CARE Instructions (If sedation given, give patient instructions): Uvulitis (ED), Pharyngitis (ED) Additional Instructions: Return to the emergency department with any new, worsening, or concerning symptoms. Take the antibiotic and decadron as prescribed. Take the first dose of the decadron tomorrow, as you received a steroid in the emergency department. You can use the throat spray 3-4 times daily as needed. Contact ENT as listed below for a follow-up appointment. Let them know that you have been seen in the emergency department for recurrent uvulitis. Prescriptions: Amoxic-Pot Clav 875-125Mg [Augmentin 875-125] 1 tab PO Q12HR 5 Days #10 tab dexAMETHasone [Decadron] 6 mg PO DAILY 4 Days #4 tablet Is patient prescribed a controlled substance at d/c from ED?: No Referrals: Prosper Rodriguez MD [Primary Care Provider] - 1-2 days Yair Mercado MD [STAFF PHYSICIAN] - 1-2 days
--- NOTE | 2022-12-04 10:05 | XR ---
EXAMINATION TYPE: XR soft tissue neck DATE OF EXAM: 12/04/2022 10:00 AM INDICATION: Patient age:Male; 32 years old; Reason for study: throat swollen; PHH. COMPARISON: Soft tissue neck x-ray 11/18/2022 TECHNIQUE: The soft tissues of the neck were imaged in 2 views. FINDINGS: The prevertebral soft tissues are unremarkable. There is no evidence of mass effect or trac heal deviation. Similar again either prominent lingual versus palatine tonsil hypertrophy noted. Epig lottis is within normal limits. No acute osseous abnormality demonstrated. No evidence of subglotti c narrowing. No radiopaque foreign bodies identified. IMPRESSION: No appreciable airway compromise. No prevertebral soft tissue swelling. Either prominent lingual vers us palatine tonsillar hypertrophy incidentally noted again.
[2022-12-04 11:14] VITALS: BP 126/85; PULSE 82; TEMP 98.4
== END 2022-12-04 11:14 | disposition home or self-care (01) ==
LOC: EC 06:48
DX: K12.2 Cellulitis and abscess of mouth (principal); J02.9 Acute pharyngitis, unspecified; J45.909 Unspecified asthma, uncomplicated; Z88.7 Allergy status to serum and vaccine; Z91.048 Other nonmedicinal substance allergy status; Z88.6 Allergy status to analgesic agent; Z88.8 Allergy status to other drugs, medicaments and biological substances; Z20.822 Contact with and (suspected) exposure to COVID-19
CPT/HCPCS: 87651; 87070; 87636; 70360; 99283; 96372; J1100

== ENCOUNTER 2023-01-28 18:01 | Emergency (ER) | payer SELFPAY ==
--- NOTE | 2023-01-28 19:36 | XR ---
EXAMINATION TYPE: XR foot complete LT DATE OF EXAM: 01/28/2023 7:06 PM INDICATION: Patient age:Male; 32 years old; Reason for study: foot pain; COMPARISON: None TECHNIQUE: The left foot was examined in the AP, oblique, and lateral projections. FINDINGS: Accessory ossicle near the cuboid. No evidence of any acute osseous pathology. No evidence of soft tissue swelling. Joints are preserve d. IMPRESSION: No evidence of acute fracture. No finding to account for patient's symptoms.
--- NOTE | 2023-01-28 20:05 | ED ---
General Adult HPI - General Chief complaint: Extremity Injury, Lower Stated complaint: L foot pain Time Seen by Provider: 01/28/23 18:05 Source: patient Mode of arrival: ambulatory Limitations: no limitations - History of Present Illness Initial comments: 32-year-old male presents to the emergency department reporting left foot pain. States it has been going on for the past month. He denies any known trauma. Pain is located on the dorsum of the foot and is worse with dorsiflexion. He denies any swelling or ecchymosis. No calf pain or swelling. No knee pain. No other alleviating, precipitating or modifying factors - Related Data Home Medications Medication Instructions Recorded Confirmed Venlafaxine HCl ER [Effexor Xr] 150 mg PO DAILY 09/06/21 11/18/22 hydrOXYzine HCL [Atarax] 10 mg PO DAILY 09/06/21 11/18/22 Previous Rx's Medication Instructions Recorded Amoxic-Pot Clav 875-125Mg 1 tab PO Q12HR 5 Days #10 tab 12/04/22 [Augmentin 875-125] dexAMETHasone [Decadron] 6 mg PO DAILY 4 Days #4 tablet 12/04/22 Ibuprofen [Motrin] 600 mg PO Q8HR PRN #30 tab 01/28/23 Allergies Allergy/AdvReac Type Severity Reaction Status Date / Time ibuprofen Allergy Rash/Hives Verified 01/28/23 18:05 [From DayQuil Sinus Pressure/Pain] Influenza Virus Vaccines Allergy Unknown Verified 01/28/23 18:05 Childhood Iodinated Contrast Media Allergy Rash/Hives Verified 01/28/23 18:05 pseudoephedrine Allergy Rash/Hives Verified 01/28/23 18:05 [From DayQuil Sinus Pressure/Pain] Review of Systems ROS Statement: Those systems with pertinent positive or pertinent negative responses have been documented in the HPI. ROS Other: All systems not noted in ROS Statement are negative. Past Medical History Past Medical History: Asthma Additional Past Medical History / Comment(s): colitis, "tiny hole in heart" History of Any Multi-Drug Resistant Organisms: None Reported Past Surgical History: No Surgical Hx Reported Past Psychological History: No Psychological Hx Reported Smoking Status: Never smoker Past Alcohol Use History: None Reported Past Drug Use History: None Reported General Exam Limitations: no limitations General appearance: alert, in no apparent distress Extremities exam: Present: other (Patient has tenderness to palpation of the midfoot of the left foot. No overlying ecchymosis or erythema. No swelling. Compartments are soft. 2+ DP and PT pulses. Intact sensation over the medial, lateral dorsal foot area no ankle or knee pain) Neurological exam: Present: alert, oriented X3, CN II-XII intact Psychiatric exam: Present: normal affect, normal mood Course Vital Signs 01/28/23 01/28/23 18:03 20:16 Temperature 98.1 F 98.2 F Pulse Rate 94 63 Respiratory 20 18 Rate Blood Pressure 124/84 133/80 O2 Sat by Pulse 95 100 Oximetry Medical Decision Making - Medical Decision Making Was pt. sent in by a medical professional or institution (, PA, HOG RINGER, urgent care, hospital, or care home...) When possible be specific @ -No Did you speak to anyone other than the patient for history (EMS, parent, family, police, friend...)? What history was obtained from this source @ -No Did you review nursing and triage notes (agree or disagree)? Why? @ -I reviewed and agree with nursing and triage notes Were old charts reviewed (outside hosp., previous admission, EMS record, old EKG, old radiological studies, urgent care reports/EKG's, care home records)? Report findings @ -No old charts were reviewed Differential Diagnosis (chest pain, altered mental status, abdominal pain women, abdominal pain men, vaginal bleeding, weakness, fever, dyspnea, syncope, headache, dizziness, GI bleed, back pain, seizure, CVA, palpatations, mental health, musculoskeletal)? @ -Differential Musculoskeletal Muscular strain, contusion, ligament sprain, fracture, arthritis, septic arthritis, bursitis, cellulitis, muscle spasm, nerve compression, DVT, arterial occlusion, herpes zoster, electrolyte abnormality, tumor.... This is not meant to be in all inclusive list EKG interpreted by me (3pts min.). @ -Not done X-rays interpreted by me (1pt min.). @ -Yes and demonstrates no acute process CT interpreted by me (1pt min.). @ -None done U/S interpreted by me (1pt. min.). @ -None done What testing was considered but not performed or refused? (CT, X-rays, U/S, labs)? Why? @ -None What meds were considered but not given or refused? Why? @ -None Did you discuss the management of the patient with other professionals (professionals i.e. , PA, HOG RINGER, lab, RT, psych nurse, social media analyst, correctional program officer, teacher, police officer, caseworker)? Give summary @ -No Was smoking cessation discussed for >3mins.? @ -No Was critical care preformed (if so, how long)? @ -No Were there social determinants of health that impacted care today? How? (Homelessness, low income, unemployed, alcoholism, drug addiction, transportation, low edu. Level, literacy, decrease access to med. care, group home, rehab)? @ -No Was there de-escalation of care discussed even if they declined (Discuss DNR or withdrawal of care, Hospice)? DNR status @ -No What co-morbidities impacted this encounter? (DM, HTN, Smoking, COPD, CAD, Cancer, CVA, ARF, Chemo, Hep., AIDS, mental health diagnosis, sleep apnea, morbid obesity)? @ -None Was patient admitted / discharged? Hospital course, mention meds given and route, prescriptions, significant lab abnormalities, going to OR and other pertinent info. @ -Upon arrival patient is placed in room 31. Thorough history and physical exam was performed. X-rays performed which demonstrates no acute process. Patient will be provided with a prescription for Motrin 600. Instructed to rest, ice and elevate the extremity. Follow up with primary care doctor may need further imaging. Return for any new or worsening symptoms. Patient was agreeable to plan and he was discharged home stable condition Undiagnosed new problem with uncertain prognosis? @ -Yes Drug Therapy requiring intensive monitoring for toxicity (Heparin, Nitro, Insulin, Cardizem)? @ -No Were any procedures done? @ -No Diagnosis/symptom? @ -Subacute left foot pain Acute, or Chronic, or Acute on Chronic? @ -Subacute Uncomplicated (without systemic symptoms) or Complicated (systemic symptoms)? @ -Uncomplicated Side effects of treatment? @ -No Exacerbation, Progression, or Severe Exacerbation? @ -No Poses a threat to life or bodily function? How? (Chest pain, [place], [place], pneumonia, PE, COPD, DKA, ARF, appy, cholecystitis, CVA, Diverticulitis, Homicidal, Suicidal, threat to staff... and all critical care pts) @ -No Disposition Clinical Impression: Left foot pain Disposition: HOME SELF-CARE Condition: Stable Instructions (If sedation given, give patient instructions): Foot Sprain (ED) Additional Instructions: Please follow up with your primary care doctor in 2-4 days. If you have continued pain, you may need further imaging. Rest, ice and elevate the extremity. Take Motrin for pain. Return for any new or worsening symptoms Prescriptions: Ibuprofen [Motrin] 600 mg PO Q8HR PRN #30 tab PRN Reason: Pain Is patient prescribed a controlled substance at d/c from ED?: No Referrals: Prosper Rodriguez MD [Primary Care Provider] - 1-2 days Time of Disposition: 20:05
[2023-01-28 20:17] VITALS: BP 133/80; PULSE 63; RESP 18; TEMP 98.2
== END 2023-01-28 20:17 | disposition home or self-care (01) ==
LOC: EC 18:01
DX: M79.672 Pain in left foot (principal); J45.909 Unspecified asthma, uncomplicated; Z88.7 Allergy status to serum and vaccine; Z91.041 Radiographic dye allergy status; Z88.6 Allergy status to analgesic agent; Z88.8 Allergy status to other drugs, medicaments and biological substances
CPT/HCPCS: 99283

== ENCOUNTER 2023-05-16 17:47 | Emergency (ER) | payer BC ==
[2023-05-16 18:07] VITALS: TEMP 98.4
[2023-05-16] MEDS ORDERED: ONDANSETRON 4 MG/2 ML VIAL IVP STA (19:39)
[2023-05-16] MEDS ORDERED: KETOROLAC 15 MG/ML 1 ML VIAL IVP STA (19:39)
[2023-05-16] MEDS ORDERED: SODIUM CHLORIDE 0.9% 1,000 ML IV STA (19:39)
[2023-05-16 20:05] LABS: Basophils % (A) 0 %; Eosinophils # (A) 0.2 k/uL (0-0.7); Eosinophils % (A) 3 %; HCT 45.5 % (39.0-53.0); Lymphocytes # (A) 2.6 k/uL (1.0-4.8); Lymphocytes % (A) 29 %; MCH 29.8 pg (25.0-35.0); MCHC 32.9 g/dL (31.0-37.0); MCV 90.5 fL (80.0-100.0); Mean Platelet Volume 7.2; Monocytes # (A) 0.4 k/uL (0-1.0); Monocytes % (A) 5 %; Neutrophils # (A) 5.4 k/uL (1.3-7.7); Neutrophils % (A) 61 %; Platelet Count 283 k/uL (150-450); RBC 5.03 m/uL (4.30-5.90); RDW 12.1 % (11.5-15.5); WBC 8.8 k/uL (3.8-10.6)
[2023-05-16 20:11] LABS: Appearance,Urine Clear (Clear); Bilirubin,Urine Negative (Negative); Blood,Urine Large (Negative); Color,Urine Yellow; Glucose,Urine (UA) Negative (Negative); Ketones,Urine Negative (Negative); Leukocyte Esterase,Urine Negative (Negative); Mucus,Urine Rare /hpf; Nitrite,Urine Negative (Negative); Protein,Urine Trace (Negative); RBC,Urine >182 /hpf (0-5); Specific Gravity,Urine 1.018 (1.001-1.035); Urobilinogen,Urine <2.0 mg/dL (<2.0); WBC,Urine <1 /hpf (0-5)
--- NOTE | 2023-05-16 20:18 | ED ---
Abdominal Pain HPI - General Chief Complaint: Abdominal Pain Stated Complaint: cramp pain left side front to back Time Seen by Provider: 05/16/23 19:22 Source: patient Mode of arrival: ambulatory Limitations: no limitations - History of Present Illness Initial Comments: 32-year-old male presenting with chief complaint of left-sided abdominal pain. Patient states the pain started today, it radiates to his back. He does have history of kidney stones and states that this feels similar. Admits to nausea with no vomiting. He has not taken any home medications. No dysuria or hematuria. No fevers or chills. - Related Data Home Medications Medication Instructions Recorded Confirmed Venlafaxine HCl ER [Effexor Xr] 150 mg PO DAILY 09/06/21 11/18/22 hydrOXYzine HCL [Atarax] 10 mg PO DAILY 09/06/21 11/18/22 Previous Rx's Medication Instructions Recorded Amoxic-Pot Clav 875-125Mg 1 tab PO Q12HR 5 Days #10 tab 12/04/22 [Augmentin 875-125] dexAMETHasone [Decadron] 6 mg PO DAILY 4 Days #4 tablet 12/04/22 Ibuprofen [Motrin] 600 mg PO Q8HR PRN #30 tab 01/28/23 Ketorolac [Toradol] 10 mg PO Q6HR PRN #12 tab 05/16/23 Ondansetron Odt [Zofran Odt] 4 mg PO Q8HR PRN #20 tab 05/16/23 Tamsulosin [Flomax] 0.4 mg PO DAILY #10 cap 05/16/23 Allergies Allergy/AdvReac Type Severity Reaction Status Date / Time ibuprofen Allergy Rash/Hives Verified 05/16/23 18:06 [From DayQuil Sinus Pressure/Pain] Influenza Virus Vaccines Allergy Unknown Verified 05/16/23 18:06 Childhood Iodinated Contrast Media Allergy Rash/Hives Verified 05/16/23 18:06 pseudoephedrine Allergy Rash/Hives Verified 05/16/23 18:06 [From DayQuil Sinus Pressure/Pain] Review of Systems ROS Statement: Those systems with pertinent positive or pertinent negative responses have been documented in the HPI. ROS Other: All systems not noted in ROS Statement are negative. Past Medical History Past Medical History: Asthma Additional Past Medical History / Comment(s): colitis, "tiny hole in heart" History of Any Multi-Drug Resistant Organisms: None Reported Past Surgical History: No Surgical Hx Reported Past Psychological History: No Psychological Hx Reported Smoking Status: Never smoker Past Alcohol Use History: None Reported Past Drug Use History: None Reported General Exam Limitations: no limitations General appearance: alert, in no apparent distress Head exam: Present: atraumatic, normocephalic, normal inspection Eye exam: Present: normal appearance, EOMI Neck exam: Present: normal inspection, full ROM Respiratory exam: Present: normal lung sounds bilaterally. Absent: respiratory distress, wheezes, rales, rhonchi, stridor Cardiovascular Exam: Present: regular rate, normal rhythm, normal heart sounds. Absent: systolic murmur, diastolic murmur, rubs, gallop, clicks GI/Abdominal exam: Present: soft, tenderness. Absent: distended, guarding, rebound, rigid Neurological exam: Present: alert, oriented X3, CN II-XII intact Psychiatric exam: Present: normal affect, normal mood Skin exam: Present: warm, dry, intact, normal color. Absent: rash Course Vital Signs 05/16/23 05/16/23 18:02 21:19 Temperature 98.4 F 98.4 F Pulse Rate 87 59 L Respiratory 14 18 Rate Blood Pressure 137/90 130/74 O2 Sat by Pulse 99 99 Oximetry Medical Decision Making - Medical Decision Making Was pt. sent in by a medical professional or institution (, PA, PERFORATOR OPERATOR, urgent care, hospital, or [place] health [facility] facility...) When possible be specific @ -No Did you speak to anyone other than the patient for history (EMS, parent, family, police, friend...)? What history was obtained from this source @ -No Did you review nursing and triage notes (agree or disagree)? Why? @ -I reviewed and agree with nursing and triage notes Were old charts reviewed (outside hosp., previous admission, EMS record, old EKG, old radiological studies, urgent care reports/EKG's, [place] health [facility] facility records)? Report findings @ -No old charts were reviewed Differential Diagnosis (chest pain, altered mental status, abdominal pain women, abdominal pain men, vaginal bleeding, weakness, fever, dyspnea, syncope, headache, dizziness, GI bleed, back pain, seizure, CVA, palpatations, mental health, musculoskeletal)? @ -MDM Differential Abdominal Pain Men: Appendicitis, cholecystitis, diverticulosis, ischemic bowel, pancreatitis, hepatitis, UTI, gastroenteritis, AAA, incarcerated hernia, bowel obstruction, constipation, inflammatory bowel, hepatitis, peptic ulcer disease, splenic infarction, perforated viscus, testicular torsion... This is not meant to be an all-inclusive list EKG interpreted by me (3pts min.). @ -As above X-rays interpreted by me (1pt min.). @ -None done CT interpreted by me (1pt min.). @ -Mild left hydronephrosis secondary to obstructing 3 mm calculus at the ureteropelvic junction. There is nonobstructing additional 2 mm calculus on the left and 3 mm calculus on the right U/S interpreted by me (1pt. min.). @ -None done What testing was considered but not performed or refused? (CT, X-rays, U/S, labs)? Why? @ -None What meds were considered but not given or refused? Why? @ -None Did you discuss the management of the patient with other professionals (professionals i.e. , PA, PERFORATOR OPERATOR, lab, RT, psych nurse, social work manager, rail project engineer, teacher, promotions officer, major case detective)? Give summary @ -No Was smoking cessation discussed for >3mins.? @ -No Was critical care preformed (if so, how long)? @ -No Were there social determinants of health that impacted care today? How? (Homelessness, low income, unemployed, alcoholism, drug addiction, transportation, low edu. Level, literacy, decrease access to med. care, longterm, rehab)? @ -No Was there de-escalation of care discussed even if they declined (Discuss DNR or withdrawal of care, Hospice)? DNR status @ -No What co-morbidities impacted this encounter? (DM, HTN, Smoking, COPD, CAD, Cancer, CVA, ARF, Chemo, Hep., AIDS, mental health diagnosis, sleep apnea, morbid obesity)? @ -None Was patient admitted / discharged? Hospital course, mention meds given and route, prescriptions, significant lab abnormalities, going to OR and other pertinent info. @ -32-year-old male presenting with chief complaint of left-sided abdominal pain with radiation to the flank. Started today. CBC and CMP are unremarkable. Urine shows large blood. CT shows obstructing 3 mm stone. He shouldn't is reevaluated after Toradol Zofran and fluids, he reports improvement in his symptoms. He'll be discharged home with Toradol, Zofran, and Flomax. Follow-up with PCP. Report back to ER with any new or worsening symptoms. Discussed return parameters and answered all questions. Patient conveyed verbal understanding and agreed to the plan. I discussed this case in detail with my attending Dr. Cobos Undiagnosed new problem with uncertain prognosis? @ -No Drug Therapy requiring intensive monitoring for toxicity (Heparin, Nitro, Insulin, Cardizem)? @ -No Were any procedures done? @ -No Diagnosis/symptom? @ -Kidney stone Acute, or Chronic, or Acute on Chronic? @ -Acute Uncomplicated (without systemic symptoms) or Complicated (systemic symptoms)? @ -Uncomplicated Side effects of treatment? @ -No Exacerbation, Progression, or Severe Exacerbation? @ -No Poses a threat to life or bodily function? How? (Chest pain, [place], [place], pneumonia, PE, COPD, DKA, ARF, appy, cholecystitis, CVA, Diverticulitis, Homicidal, Suic idal, threat to staff... and all critical care pts) @ -No - Lab Data Result diagrams: 05/16/23 19:46 05/16/23 19:46 Lab Results 05/16/23 05/16/23 05/16/23 Range/Units 19:46 19:46 19:46 WBC 8.8 (3.8-10.6) k/uL RBC 5.03 (4.30-5.90) m/uL Hgb 15.0 (13.0-17.5) gm/dL Hct 45.5 (39.0-53.0) % MCV 90.5 (80.0-100.0) fL MCH 29.8 (25.0-35.0) pg MCHC 32.9 (31.0-37.0) g/dL RDW 12.1 (11.5-15.5) % Plt Count 283 (150-450) k/uL MPV 7.2 Neutrophils % 61 % Lymphocytes % 29 % Monocytes % 5 % Eosinophils % 3 % Basophils % 0 % Neutrophils # 5.4 (1.3-7.7) k/uL Lymphocytes # 2.6 (1.0-4.8) k/uL Monocytes # 0.4 (0-1.0) k/uL Eosinophils # 0.2 (0-0.7) k/uL Basophils # 0.0 (0-0.2) k/uL Sodium 141 (137-145) mmol/L Potassium 4.2 (3.5-5.1) mmol/L Chloride 104 (98-107) mmol/L Carbon Dioxide 29 (22-30) mmol/L Anion Gap 8 mmol/L BUN 12 (9-20) mg/dL Creatinine 0.88 (0.66-1.25) mg/dL Est GFR (CKD-EPI)AfAm >90 (>60 ml/min/1.73 sqM) Est GFR (CKD-EPI)NonAf >90 (>60 ml/min/1.73 sqM) Glucose 98 (74-99) mg/dL Calcium 9.4 (8.4-10.2) mg/dL Total Bilirubin 0.6 (0.2-1.3) mg/dL AST 29 (17-59) U/L ALT 25 (4-49) U/L Alkaline Phosphatase 66 (38-126) U/L Total Protein 7.9 (6.3-8.2) g/dL Albumin 4.6 (3.5-5.0) g/dL Urine Color Yellow Urine Appearance Clear (Clear) Urine pH 7.0 (5.0-8.0) Ur Specific [place] 1.018 (1.001-1.035) Urine Protein Trace H (Negative) Urine Glucose (UA) Negative (Negative) Urine Ketones Negative (Negative) Urine Blood Large H (Negative) Urine Nitrite Negative (Negative) Urine Bilirubin Negative (Negative) Urine Urobilinogen <2.0 (<2.0) mg/dL Ur Leukocyte Esterase Negative (Negative) Urine RBC >182 H (0-5) /hpf Urine WBC <1 (0-5) /hpf Urine Mucus Rare H (None) /hpf Disposition Clinical Impression: Kidney stone Disposition: HOME SELF-CARE Condition: Good Instructions (If sedation given, give patient instructions): Kidney Stones (ED) Additional Instructions: Follow-up with PCP. Report back to ER with any new or worsening symptoms. Take medication as prescribed. Prescriptions: Tamsulosin [Flomax] 0.4 mg PO DAILY #10 cap Ketorolac [Toradol] 10 mg PO Q6HR PRN #12 tab PRN Reason: Pain Ondansetron Odt [Zofran Odt] 4 mg PO Q8HR PRN #20 tab PRN Reason: Nausea Is patient prescribed a controlled substance at d/c from ED?: No Referrals: Prosper Rodriguez [Primary Care Provider] - 1-2 days Time of Disposition: 20:44
[2023-05-16 20:25] LABS: ALT 25 U/L (4-49); AST 29 U/L (17-59); African American GFR (CKD) >90 (>60 ml/min/1.73 sqM); Albumin 4.6 g/dL (3.5-5.0); Alkaline Phosphatase 66 U/L (38-126); Anion Gap 8 mmol/L; Blood Urea Nitrogen 12 mg/dL (9-20); Calcium 9.4 mg/dL (8.4-10.2); Carbon Dioxide 29 mmol/L (22-30); Chloride 104 mmol/L (98-107); Glucose 98 mg/dL (74-99); Non-African American GFR(CKD) >90 (>60 ml/min/1.73 sqM); Potassium 4.2 mmol/L (3.5-5.1); Sodium 141 mmol/L (137-145); Total Bilirubin 0.6 mg/dL (0.2-1.3); Total Protein 7.9 g/dL (6.3-8.2)
--- NOTE | 2023-05-16 20:31 | CT ---
EXAMINATION TYPE: CT abdomen pelvis wo con CT DLP: 625.1 mGycm, Automated exposure control for dose reduction was used. DATE OF EXAM: 05/16/2023 8:14 PM COMPARISON: CT abdomen pelvis most recent from 02/16/2022. CLINICAL INDICATION:Male, 32 years old with history of L sided flank pain; Left side flank pain. TECHNIQUE: Axial CT of the abdomen and pelvis. Sagittal and coronal reformats were created on a [employer] workstation. Contrast used: mL of , (none if empty) Oral contrast used: without Oral Contrast (none if empty) FINDINGS: LOWER CHEST: Mild gynecomastia changes. ABDOMEN LIVER: Unremarkable GALLBLADDER AND BILE DUCTS: Unremarkable. PANCREAS: Unremarkable. SPLEEN: Unremarkable. ADRENAL GLANDS: Unremarkable. KIDNEYS AND URETERS: Mild left hydronephrosis secondary obstructing 3 mm calculus at the ureteropelvi c junction. There is nonobstructing additional 2 mm calculus on the left and 3 mm calculus on the rig ht. PELVIS BLADDER: Unremarkable REPRODUCTIVE: Unremarkable. ABDOMEN & PELVIS STOMACH AND BOWEL: No evidence of bowel obstruction. PERITONEUM/RETROPERITONEUM: No evidence of pneumoperitoneum or free fluid. VASCULATURE: No evidence of aortic aneurysm. MUSCULOSKELETAL: No acute osseous abnormalities LYMPH NODES: No gross evidence for lymphadenopathy. SOFT TISSUE/ABDOMINAL WALL: Small fat-containing umbilical hernias. Fat-containing umbilical hernia. IMPRESSION: Mild left hydronephrosis secondary obstructing 3 mm calculus at the ureteropelvic junction. There is nonobstructing additional 2 mm calculus on the left and 3 mm calculus on the right.
[2023-05-16 21:23] VITALS: BP 130/74; PULSE 59; RESP 18
== END 2023-05-16 21:25 | disposition home or self-care (01) ==
LOC: EC 17:47
DX: N13.2 Hydronephrosis with renal and ureteral calculous obstruction (principal); J45.909 Unspecified asthma, uncomplicated; Z88.6 Allergy status to analgesic agent; Z88.7 Allergy status to serum and vaccine; Z88.8 Allergy status to other drugs, medicaments and biological substances
CPT/HCPCS: 36415; 80053; 85025; 81001; 74176; 99284; 96374; 96375; 96361; J2405; J1885

== ENCOUNTER 2023-05-17 03:02 | Emergency (ER) | payer BC ==
[2023-05-17 03:16] VITALS: RESP 18; TEMP 98.1
[2023-05-17] MEDS ORDERED: ONDANSETRON 4 MG/2 ML VIAL IVP STA (03:57)
[2023-05-17] MEDS ORDERED: KETOROLAC 15 MG/ML 1 ML VIAL IVP STA (03:57)
[2023-05-17] MEDS ORDERED: TAMSULOSIN 0.4 MG CAP.ER.24H PO STA (03:57)
[2023-05-17] MEDS ORDERED: SODIUM CHLORIDE 0.9% 1,000 ML IV ONE (03:57)
--- NOTE | 2023-05-17 05:00 | ED ---
General Adult HPI - General Chief complaint: Abdominal Pain Stated complaint: kidney stones Time Seen by Provider: 05/17/23 03:24 Source: patient Mode of arrival: ambulatory Limitations: no limitations - History of Present Illness Initial comments: This is a 32-year-old male with a recent diagnosed kidney stone today presents emergency department for continued pain and discomfort. The patient stated that he was discharged from the hospital in emergency department the previous day but was unable to go to the pharmacy as he did closed for the patient to get his medicine. The patient stated he presents emergency Department because he could not comfortable at home and he did have any pain medication. The patient denied any worsening of the pain but stated that he had continued discomfort. The patient was otherwise resting in bed comfortably. - Related Data Home Medications Medication Instructions Recorded Confirmed Venlafaxine HCl ER [Effexor Xr] 150 mg PO DAILY 09/06/21 11/18/22 hydrOXYzine HCL [Atarax] 10 mg PO DAILY 09/06/21 11/18/22 Previous Rx's Medication Instructions Recorded Amoxic-Pot Clav 875-125Mg 1 tab PO Q12HR 5 Days #10 tab 12/04/22 [Augmentin 875-125] dexAMETHasone [Decadron] 6 mg PO DAILY 4 Days #4 tablet 12/04/22 Ibuprofen [Motrin] 600 mg PO Q8HR PRN #30 tab 01/28/23 Ketorolac [Toradol] 10 mg PO Q6HR PRN #12 tab 05/16/23 Ondansetron Odt [Zofran Odt] 4 mg PO Q8HR PRN #20 tab 05/16/23 Tamsulosin [Flomax] 0.4 mg PO DAILY #10 cap 05/16/23 Allergies Allergy/AdvReac Type Severity Reaction Status Date / Time ibuprofen Allergy Rash/Hives Verified 05/17/23 03:16 [From DayQuil Sinus Pressure/Pain] Influenza Virus Vaccines Allergy Unknown Verified 05/17/23 03:16 Childhood Iodinated Contrast Media Allergy Rash/Hives Verified 05/17/23 03:16 pseudoephedrine Allergy Rash/Hives Verified 05/17/23 03:16 [From DayQuil Sinus Pressure/Pain] Review of Systems ROS Statement: Those systems with pertinent positive or pertinent negative responses have been documented in the HPI. ROS Other: All systems not noted in ROS Statement are negative. Past Medical History Past Medical History: Asthma Additional Past Medical History / Comment(s): colitis, "tiny hole in heart" History of Any Multi-Drug Resistant Organisms: None Reported Past Surgical History: No Surgical Hx Reported Past Psychological History: No Psychological Hx Reported Smoking Status: Never smoker Past Alcohol Use History: None Reported Past Drug Use History: None Reported General Exam Limitations: no limitations General appearance: alert, in no apparent distress Head exam: Present: atraumatic, normocephalic, normal inspection Eye exam: Present: normal appearance, PERRL Pupils: Present: normal accommodation ENT exam: Present: normal exam, normal oropharynx, mucous membranes moist Neck exam: Present: normal inspection, full ROM Respiratory exam: Present: normal lung sounds bilaterally Cardiovascular Exam: Present: regular rate, normal rhythm, normal heart sounds GI/Abdominal exam: Present: soft, tenderness (Mild TTP ove the left lower abdominal quadrant), normal bowel sounds Extremities exam: Present: normal inspection, full ROM Back exam: Present: normal inspection, full ROM Neurological exam: Present: alert, oriented X3, CN II-XII intact Psychiatric exam: Present: normal affect, normal mood Skin exam: Present: warm, dry Course Vital Signs 05/17/23 03:14 Temperature 98.1 F Pulse Rate 71 Respiratory 18 Rate Blood Pressure 120/87 O2 Sat by Pulse 99 Oximetry Medical Decision Making - Medical Decision Making Was pt. sent in by a medical professional or institution ([facility] Willing[facility], NETWORK PROGRAMMER, urgent care, hospital, or senior care...) When possible be specific @ -No Did you speak to anyone other than the patient for history (EMS, parent, family, police, friend...)? What history was obtained from this source @ -No Did you review nursing and triage notes (agree or disagree)? Why? @ -I reviewed and agree with nursing and triage notes Were old charts reviewed (outside hosp., previous admission, EMS record, old EKG, old radiological studies, urgent care reports/EKG's, senior care records)? Report findings @ -Yes, previous ER note was reviewed Differential Diagnosis (chest pain, altered mental status, abdominal pain women, abdominal pain men, vaginal bleeding, weakness, fever, dyspnea, syncope, headache, dizziness, GI bleed, back pain, seizure, CVA, palpatations, mental health)? @ -Continued kidney stone pain, pyelonephritis, UTI EKG interpreted by me (3pts min.). @ -None X-rays interpreted by me (1pt min.). @ -None done CT interpreted by me (1pt min.). @ -None done U/S interpreted by me (1pt. min.). @ -None done What testing was considered but not performed or refused? (CT, X-rays, U/S, labs)? Why? @ -No further testing was obtained as the patient was just discharged from the emergency department several hours ago and had a complete workup showing kidney stones. What meds were considered but not given or refused? Why? @ -None Did you discuss the management of the patient with other professionals (professionals i.e. Dr., PA, NETWORK PROGRAMMER, lab, RT, psych nurse, social services director, laboratory animal care veterinarian, teacher, chief medical officer, caseworker)? Give summary @ -No Was smoking cessation discussed for >3mins.? @ -No Was critical care preformed (if so, how long)? @ -No Were there social determinants of health that impacted care today? How? (Homelessness, low income, unemployed, alcoholism, drug addiction, transportation, low edu. Level, literacy, decrease access to med. care, residential, rehab)? @ -No Was there de-escalation of care discussed even if they declined (Discuss DNR or withdrawal of care, Hospice)? DNR status @ -No What co-morbidities impacted this encounter? (DM, HTN, Smoking, COPD, CAD, Cancer, CVA, ARF, Chemo, Hep., AIDS, mental health diagnosis, sleep apnea, morbid obesity)? @ -None Was patient admitted / discharged? Hospital course, mention meds given and route, prescriptions, significant lab abnormalities, going to OR and other pertinent info. @ -The patient was seen and evaluated in the emergency department. Physical exam, the patient was resting in bed in mild distress secondary to abdominal pain. Due to the nature the patient's complaints and the patient having a full workup performed several hours ago, no further workup was obtained this time. The patient was given IV Toradol, Zofran and fluids as well as Flomax. On reevaluation, the patient did have improvement of his pain was stable for discharge home. The patient was advised that this medication will last this is similar to the pharmacy could open in the morning. The patient was agreeable to this and he was instructed to take the medications as previous he prescribed. The patient was discharged home in stable condition. Undiagnosed new problem with uncertain prognosis? @ -No Drug Therapy requiring intensive monitoring for toxicity (Heparin, Nitro, Ins ulin, Cardizem)? @ -No Were any procedures done? @ -No Diagnosis/symptom? @ -Kidney stone pain Acute, or Chronic, or Acute on Chronic? @ -Acute Uncomplicated (without systemic symptoms) or Complicated (systemic symptoms)? @ -Uncomplicated Side effects of treatment? @ -No Exacerbation, Progression, or Severe Exacerbation? @ -No Poses a threat to life or bodily function? How? (Chest pain, [place], [place], pneumonia, PE, COPD, DKA, ARF, appy, cholecystitis, CVA, Diverticulitis, Homicidal, Suicidal, threat to staff... and all critical care pts) @ -No Disposition Clinical Impression: Pain due to calculus of kidney Disposition: HOME SELF-CARE Condition: Stable Instructions (If sedation given, give patient instructions): Kidney Stones (ED) Additional Instructions: Please use medications as previously prescribed. Is patient prescribed a controlled substance at d/c from ED?: No Referrals: Prosper Rodriguez [Primary Care Provider] - 1-2 days Time of Disposition: 16:30
[2023-05-17] MEDS ORDERED: HYDROcodone/APAP 5-325MG 1 EACH TAB PO STA (05:05)
[2023-05-17 05:20] VITALS: BP 121/89; PULSE 63
== END 2023-05-17 05:20 | disposition home or self-care (01) ==
LOC: EC 03:02
DX: N20.0 Calculus of kidney (principal); J45.909 Unspecified asthma, uncomplicated; Z88.7 Allergy status to serum and vaccine; Z91.011 Allergy to milk products; Z88.6 Allergy status to analgesic agent; Z88.8 Allergy status to other drugs, medicaments and biological substances
CPT/HCPCS: 99284; 96374; 96375; 96361; J2405; J1885

== ENCOUNTER 2024-04-12 05:18 | Emergency (ER) | payer OTHER ==
[2024-04-12] MEDS ORDERED: SODIUM CHLORIDE 0.9% 500 ML BAG ONE (06:00)
[2024-04-12] MEDS ORDERED: SODIUM CHLORIDE 0.9% 1,000 ML BAG ONE (06:00)
[2024-04-12] MEDS ORDERED: PANTOPRAZOLE 40 MG/10 ML VIAL ONE (06:29)
[2024-04-12] MEDS ORDERED: ONDANSETRON 4 MG/2 ML VIAL ONE (06:29)
--- NOTE | 2024-05-13 15:53 | CT ---
ANNEMARIE BENITEZ : 1990 EXAM: CT abdomen and pelvis without contrast. DATE: 04/12/2024 08:04 INDICATION: Reason for study: gi bleed, dark red, and upper abdominal pain starting today COMPARISON: None, please note PACS downtime occurred during the radiologist interpretation of these i mages with limited priors/reports.. TECHNIQUE: CT abdomen and pelvis without contrast, with axial imaging and sagittal and coronal reformats without IV or oral contrast. Lack of IV or oral contrast limits evaluation of solid and hollow organ viscera .. One or more CT dose reduction strategies were utilized during this examination. Total DLP administ ered was 601 mGycm. FINDINGS: LOWER CHEST: Unremarkable ABDOMEN LIVER: Unremarkable GALLBLADDER AND BILE DUCTS: Unremarkable. PANCREAS: Unremarkable. SPLEEN: Unremarkable. ADRENAL GLANDS: Unremarkable. KIDNEYS AND URETERS: Nonobstructing 2 mm right renal calculus. No left renal calculi. No hydronephros is. PELVIS BLADDER: Unremarkable REPRODUCTIVE: Unremarkable. ABDOMEN & PELVIS STOMACH AND BOWEL: The colon demonstrates areas of nondistention with evidence of circumferential wal l thickening scattered throughout the anomaly in the sigmoid colon and ascending colon with mesenteri c engorgement. Stomach and duodenum are unremarkable. No evidence of bowel obstruction. The appendix is normal. PERITONEUM: No evidence of pneumoperitoneum or free fluid. VASCULATURE: No evidence of aortic aneurysm. MUSCULOSKELETAL: No acute osseous abnormalities LYMPH NODES: No gross evidence for lymphadenopathy. SOFT TISSUE/ABDOMINAL WALL: Tiny fat-containing umbilical hernia. IMPRESSION: Mild colitis may be present throughout the colon. No free air or organizing fluid collection. Nonobstructing right renal calculus.
== END 2024-04-12 10:59 | disposition home or self-care (01) ==
LOC: EC 05:18
DX: K52.9 Noninfective gastroenteritis and colitis, unspecified (principal)
CPT/HCPCS: 74176; 96361; 96374; 96375; 99284

== ENCOUNTER 2024-09-17 08:14 | Emergency (ER) | payer BC ==
--- NOTE | 2024-09-17 08:33 | ED ---
General Adult HPI - General Chief complaint: Headache Stated complaint: migraine/bodyache/congestion/cough/chills Time Seen by Provider: 09/17/24 08:32 Source: patient, RN notes reviewed Mode of arrival: ambulatory Limitations: no limitations - History of Present Illness Initial comments: This is a 34-year-old male with history of migraine headaches presenting to the emergency department chief complaint of headache, dry cough, congestion, chills, and bodyaches. Patient states that he is been experiencing a migraine headache since yesterday morning and other symptoms over the past 2 days. Endorses nausea with no reported emesis. Denies chest pain, shortness of breath, abdominal pain, diarrhea. Last took Tylenol at 0300 with relief of headache. - Related Data Home Medications Medication Instructions Recorded Confirmed Venlafaxine HCl ER [Effexor Xr] 150 mg PO DAILY 09/06/21 11/18/22 hydrOXYzine HCL [Atarax] 10 mg PO DAILY 09/06/21 11/18/22 Previous Rx's Medication Instructions Recorded Amoxic-Pot Clav 875-125Mg 1 tab PO Q12HR 5 Days #10 tab 12/04/22 [Augmentin 875-125] dexAMETHasone [Decadron] 6 mg PO DAILY 4 Days #4 tablet 12/04/22 Ibuprofen [Motrin] 600 mg PO Q8HR PRN #30 tab 01/28/23 Ketorolac [Toradol] 10 mg PO Q6HR PRN #12 tab 05/16/23 Ondansetron Odt [Zofran Odt] 4 mg PO Q8HR PRN #20 tab 05/16/23 Tamsulosin [Flomax] 0.4 mg PO DAILY #10 cap 05/16/23 Allergies Allergy/AdvReac Type Severity Reaction Status Date / Time ibuprofen Allergy Rash/Hives Verified 09/17/24 08:28 [From DayQuil Sinus Pressure/Pain] Influenza Virus Vaccines Allergy Unknown Verified 09/17/24 08:28 Childhood Iodinated Contrast Media Allergy Rash/Hives Verified 09/17/24 08:28 pseudoephedrine Allergy Rash/Hives Verified 09/17/24 08:28 [From DayQuil Sinus Pressure/Pain] Review of Systems ROS Statement: Those systems with pertinent positive or pertinent negative responses have been documented in the HPI. ROS Other: All systems not noted in ROS Statement are negative. Past Medical History Past Medical History: Asthma Additional Past Medical History / Comment(s): colitis, "tiny hole in heart" History of Any Multi-Drug Resistant Organisms: None Reported Past Surgical History: No Surgical Hx Reported Past Psychological History: No Psychological Hx Reported Smoking Status: Never smoker Past Alcohol Use History: None Reported Past Drug Use History: None Reported General Exam Limitations: no limitations General appearance: alert, in no apparent distress ENT exam: Present: normal exam, mucous membranes moist Neck exam: Present: normal inspection. Absent: tenderness, meningismus, lymphadenopathy Respiratory exam: Present: normal lung sounds bilaterally. Absent: respiratory distress, wheezes, rales, rhonchi, stridor Cardiovascular Exam: Present: regular rate, normal rhythm, normal heart sounds. Absent: systolic murmur, diastolic murmur, rubs, gallop, clicks GI/Abdominal exam: Present: soft, normal bowel sounds. Absent: distended, tenderness, guarding, rebound, rigid Extremities exam: Present: normal inspection, full ROM, normal capillary refill. Absent: tenderness, pedal edema, joint swelling, calf tenderness Back exam: Present: normal inspection Skin exam: Present: warm, dry, intact, normal color. Absent: rash Course Vital Signs 09/17/24 09/17/24 08:23 08:39 Temperature 99.6 F Pulse Rate 127 H Respiratory 20 18 Rate Blood Pressure 134/62 O2 Sat by Pulse 97 Oximetry Medical Decision Making - Medical Decision Making Was pt. sent in by a medical professional or institution ([facility], CRUDE OIL DRIVER, urgent care, hospital, or skilled nursing...) When possible be specific @ -No Did you speak to anyone other than the patient for history (EMS, parent, family, police, friend...)? What history was obtained from this source @ -No Did you review nursing and triage notes (agree or disagree)? Why? @ -I reviewed and agree with nursing and triage notes Were old charts reviewed (outside hosp., previous admission, EMS record, old EKG, old radiological studies, urgent care reports/EKG's, skilled nursing records)? Report findings @ -No old charts were reviewed Differential Diagnosis (chest pain, altered mental status, abdominal pain women, abdominal pain men, vaginal bleeding, weakness, fever, dyspnea, syncope, headache, dizziness, GI bleed, back pain, seizure, CVA, palpatations, mental health, musculoskeletal)? @ -COVID 19, RSV, influenza, pneumonia, acute bronchitis, URI, this list is not all inclusive EKG interpreted by me (3pts min.). @ -None X-rays interpreted by me (1pt min.). @ -None done CT interpreted by me (1pt min.). @ -None done U/S interpreted by me (1pt. min.). @ -None done What testing was considered but not performed or refused? (CT, X-rays, U/S, labs)? Why? @ -None What meds were considered but not given or refused? Why? @ -None Did you discuss the management of the patient with other professionals (professionals i.e. , PA, CRUDE OIL DRIVER, lab, RT, psych nurse, long term care social worker, credit and collections analyst, teacher, chief security officer, spring encaser)? Give summary @ -No Was smoking cessation discussed for >3mins.? @ -No Was critical care preformed (if so, how long)? @ -No Were there social determinants of health that impacted care today? How? (Homelessness, low income, unemployed, alcoholism, drug addiction, transportation, low edu. Level, literacy, decrease access to med. care, usp, rehab)? @ -No Was there de-escalation of care discussed even if they declined (Discuss DNR or withdrawal of care, Hospice)? DNR status @ -No What co-morbidities impacted this encounter? (DM, HTN, Smoking, COPD, CAD, Cancer, CVA, ARF, Chemo, Hep., AIDS, mental health diagnosis, sleep apnea, morbid obesity)? @ -None Was patient admitted / discharged? Hospital course, mention meds given and route, prescriptions, significant lab abnormalities, going to OR and other pertinent info. @ -Discharge. 34-year-old male presenting with bodyaches, migraine, fatigue. Patient is noted to be tachycardic on arrival heart rate of 127 and low-grade fever of 99.6. He will be provided with IV fluids and medications for migraine. He has tested positive for COVID. Symptomatic treatment discussed with patient at bedside. Case discussed with Dr. Cobos Undiagnosed new problem with uncertain prognosis? @ -No Drug Therapy requiring intensive monitoring for toxicity (Heparin, Nitro, Insulin, Cardizem)? @ -No Were any procedures done? @ -No Diagnosis/symptom? @ -COVID-19 Acute, or Chronic, or Acute on Chronic? @ -acute Uncomplicated (without systemic symptoms) or Complicated (systemic symptoms)? @ -uncomplicated Side effects of treatment? @ -No Exacerbation, Progression, or Severe Exacerbation? @ -No Poses a threat to life or bodily function? How? (Chest pain, [place], [place], pneumonia, PE, COPD, DKA, ARF, appy, cholecystitis, CVA, Diverticulitis, Homicidal, Suicidal, threat to staff... and all critical care pts) @ -No - Lab Data Lab Results 09/17/24 Range/Units 08:42 Influenza Type A (PCR) Not Detected (Not Detectd) Influenza Type B (PCR) Not Detected (Not Detectd) RSV (PCR) Not Detected (Not Detectd) SARS-CoV-2 (PCR) Detected A (Not Detectd) Disposition Clinical Impression: COVID-19 Disposition: HOME SELF-CARE Condition: Good Instructions (If sedation given, give patient instructions): COVID-19 (Coronavirus Disease 2019) (ED) Additional Instructions: Please return to the Emergency Department if symptoms worsen or any other concerns. Is patient prescribed a controlled substance at d/c from ED?: No Referrals: Prosper Rodriguez [Primary Care Provider] - 1-2 days Time of Disposition: 09:31
[2024-09-17] MEDS: SODIUM CHLORIDE 0.9% 1,000 ML IV STA (08:52)
[2024-09-17] MEDS: ACETAMINOPHEN TAB 500 MG TAB PO STA (08:52)
[2024-09-17 08:57] VITALS: RESP 18
[2024-09-17] MEDS: ONDANSETRON 4 MG/2 ML VIAL IVP STA (08:58)
[2024-09-17] MEDS: diphenhydrAMINE 50 MG/ML 1 ML VIAL IVP STA (08:59)
[2024-09-17] MEDS: KETOROLAC 15 MG/ML 1 ML VIAL IVP STA (09:01)
[2024-09-17 09:26] LABS: Influenza A Not Detected (Not Detectd); Influenza B Not Detected (Not Detectd); RSV Not Detected (Not Detectd)
[2024-09-17 09:43] VITALS: BP 126/72; PULSE 101; TEMP 99.1
== END 2024-09-17 09:41 | disposition home or self-care (01) ==
LOC: EC 08:14
DX: U07.1 COVID-19 (principal); Z88.6 Allergy status to analgesic agent; Z88.7 Allergy status to serum and vaccine; Z91.041 Radiographic dye allergy status; Z88.8 Allergy status to other drugs, medicaments and biological substances
CPT/HCPCS: 87636; 99283; 96374; 96375 ×2; 96361; J1200; J2405; J1885